=== PATIENT | male | born 1940 | race Caucasian/White ===

== ENCOUNTER 2022-12-08 12:44 | Emergency (ER) | payer MEDICARE, OTHER ==
[~2022-12-08] VITALS: Ht 177.8 cm; Wt 90.7 kg
[~2022-12-08 12:44] MED LIST: ALBU90OI6 INH; ASPI81EC; ASPI81EC PO; CEPH500 PO; DOXY100 PO; FLUSAL2505 IH; FOSI10 PO; FURO20 PO; GLIP10 PO; GLIP5 PO; MULVITA; PIOG30 PO; QUIN10
[2022-12-08 13:07] LABS: BASOPHILS ABSOLUTE AUTO 0.05 K/mm3 (0.00-0.23); BASOPHILS PERCENT AUTO 0 % (0-2); EOSINOPHILS ABSOLUTE AUTO 0.06 K/mm3 (0.00-0.68); EOSINOPHILS PERCENT AUTO 1 % (0-6); Hematocrit 45.1 % (37.0-53.0); Hemoglobin 15.3 g/dL (13.5-17.5); IMMATURE GRAN ABSOLUTE AUTO 0.05 K/mm3 (0.00-0.10); IMMATURE GRAN PERCENT AUTO 0 % (0-1); LYMPHOCYTES ABSOLUTE AUTO 0.83 K/mm3 (0.84-5.20); LYMPHOCYTES PERCENT AUTO 7 % (21-46); MONOCYTES PERCENT AUTO 6 % (4-13); Mean Corpuscular HGB 30.2 pg (26.0-34.0); Mean Corpuscular HGB Conc 33.9 g/dL (31.5-36.5); Mean Corpuscular Volume 89 fL (80-100); Mean Platelet Volume 10.3 fL (9.1-12.4); NEUTROPHILS ABSOLUTE AUTO 10.64 K/mm3 (1.96-9.15); NEUTROPHILS PERCENT AUTO 86 % (41-73); Platelet Count 195 K/mm3 (150-400); RDW Coefficient Variation 12.5 % (11.7-14.2); Red Blood Cell Count 5.06 M/mm3 (4.30-5.90); White Blood Cell Count 12.43 K/mm3 (4.00-11.30)
[2022-12-08 13:24] LABS: Ethanol (Alcohol), Blood, Med <3 mg/dL
[2022-12-08 13:25] LABS: Alanine Aminotransfer (ALT/SGP 15 U/L (12-78); Albumin, Blood 3.7 g/dL (3.4-5.0); Albumin/Globulin Ratio 1.2 (0.8-1.8); Alk Phos 106 U/L (50-136); Anion Gap 6 mmol/L (6-16); Aspartate Aminotrans (AST/SGOT 17 U/L (12-37); Bilirubin, Total 0.4 mg/dL (0.1-1.0); Blood Urea Nitrogen 25 mg/dL (8-24); Bun/Creatinine Ratio 22.1 (12.0-20.0); CO2, Blood 27 mmol/L (21-32); Calcium, Blood 8.8 mg/dL (8.5-10.1); Chloride, Blood 107 mmol/L (98-108); Creatinine, Blood 1.13 mg/dL (0.60-1.20); Globulin, Blood 3.2 g/dL (2.2-4.0); Glomerular Filtration Rate 64 (60-); Glucose, Blood 88 mg/dL (70-99); Potassium, Blood 3.7 mmol/L (3.5-5.5); Sodium, Blood 140 mmol/L (136-145); Total Protein, Blood 6.9 g/dL (6.4-8.2)
[2022-12-08 13:51] LABS: Source, Urine Straight Cath
[2022-12-08 13:55] LABS: Bilirubin, Urine Neg (Neg); Blood, Urine Neg (Neg); Glucose Qualitative, Urine Neg (Neg); Ketones, Urine Neg (Neg); Leukocyte Esterase, Urine Neg (Neg); Nitrite, Urine Neg (Neg); Protein, Urine 1+ (Neg); Urobilinogen, Urine NORM (Normal)
[2022-12-08 13:57] LABS: Appearance, Urine Clear (Clear); Color, Urine Yellow (P-Yellow)
[2022-12-08 14:14] LABS: U Amphetamine Screen Not Detected; U Barbituate Screen Not Detected; U Benzodiazapine Screen Not Detected; U Buprenorphine Screen Not Detected; U Cannabinoids Screen Not Detected; U Cocaine Screen Not Detected; U Methadone Screen Not Detected; U Methamphetamine Screen Not Detected; U Opiates Screen Not Detected; U Oxycodone Screen Not Detected; U Phencyclidine Screen Not Detected; U Propoxyphene Screen Not Detected
[2022-12-08] MEDS ORDERED: B-12500 MC2 PO (15:00)
[2022-12-08] MEDS ORDERED: CARBLEV25 SL (15:00)
[2022-12-08] MEDS ORDERED: INSULIN GL100 UNIT/3 (15:01)
[2022-12-08] MEDS ORDERED: DONEPEZIL HCL10 MG PO (15:01)
[2022-12-08] MEDS ORDERED: CYCL10 PO (15:01)
[2022-12-08] MEDS ORDERED: LIDO700A20 TOP (15:02)
[2022-12-08] MEDS ORDERED: MEMA10 PO (15:02)
[2022-12-08] MEDS ORDERED: LOSA50 PO (15:02)
[2022-12-08] MEDS ORDERED: MIRALAX17 GM PO (15:03)
[2022-12-08] MEDS ORDERED: OXYB5 (15:03)
[2022-12-08] MEDS ORDERED: NOVOLIN N100 UNIT/2 SQ (15:03)
[2022-12-08] MEDS ORDERED: ZOCOR20 MG (15:03)
[2022-12-08] MEDS ORDERED: SYMBICORT 160-4.6 GM (15:04)
[2022-12-08] MEDS ORDERED: SITA50T2 PO (15:04)
[2022-12-08] MEDS ORDERED: SENN187 PO (15:04)
[2022-12-08] MEDS ORDERED: ALBU8HFA2 INH (15:05)
[2022-12-08] MEDS ORDERED: TAMS.4ER PO (15:05)
== END 2022-12-08 18:17 | disposition home or self-care (01) ==
LOC: ER 12:44
PROVIDERS: Emergency Medicine
DX: G20 Parkinson's disease (principal); F02.80 Dementia in other diseases classified elsewhere, unspecified severity, without behavioral disturbance, psychotic disturbance, mood disturbance, and anxiety; R41.0 Disorientation, unspecified; E11.9 Type 2 diabetes mellitus without complications; J44.9 Chronic obstructive pulmonary disease, unspecified; Z79.899 Other long term (current) drug therapy; Z79.82 Long term (current) use of aspirin; Z79.4 Long term (current) use of insulin
CPT/HCPCS: 36415; 51701; 70450; 71045; 71260; 80053; 82947; 84484; 85025; 93005; 93010; 99285-25; G0480; Q9967

== ENCOUNTER 2025-02-23 19:32 | Emergency (ER) | payer MEDICARE, OTHER ==
[~2025-02-23] VITALS: Ht 154.9 cm; Wt 59.9 kg
[~2025-02-23 19:32] MED LIST changes: +ALBU8HFA2 INH; +B-12500 MC2 PO; +CARBLEV25 SL; +CYCL10 PO; +DONEPEZIL HCL10 MG PO; +INSULIN GL100 UNIT/3; +LIDO700A20 TOP; +LOSA50 PO; +MEMA10 PO; +MIRALAX17 GM PO; +NOVOLIN N100 UNIT/2 SQ; +OXYB5; +SENN187 PO; +SITA50T2 PO; +SYMBICORT 160-4.6 GM; +TAMS.4ER PO; +ZOCOR20 MG
[2025-02-23] MEDS ORDERED: Ondansetron HCl 2 MG / ML 2ML Vial IV PRN (20:35)
[2025-02-23 20:51] LABS: BASOPHILS ABSOLUTE AUTO 0.04 K/mm3 (0.00-0.23); BASOPHILS PERCENT AUTO 0 % (0-2); EOSINOPHILS ABSOLUTE AUTO 0.03 K/mm3 (0.00-0.68); EOSINOPHILS PERCENT AUTO 0 % (0-6); Hemoglobin 14.8 g/dL (13.5-17.5); IMMATURE GRAN ABSOLUTE AUTO 0.03 K/mm3 (0.00-0.10); IMMATURE GRAN PERCENT AUTO 0 % (0-1); LYMPHOCYTES ABSOLUTE AUTO 1.07 K/mm3 (0.84-5.20); LYMPHOCYTES PERCENT AUTO 10 % (21-46); MONOCYTES ABSOLUTE AUTO 0.66 K/mm3 (0.16-1.47); MONOCYTES PERCENT AUTO 6 % (4-13); Mean Corpuscular HGB 29.4 pg (26.0-34.0); Mean Corpuscular HGB Conc 33.6 g/dL (31.5-36.5); Mean Corpuscular Volume 87 fL (80-100); Mean Platelet Volume 10.8 fL (9.1-12.4); NEUTROPHILS ABSOLUTE AUTO 8.97 K/mm3 (1.96-9.15); NEUTROPHILS PERCENT AUTO 83 % (41-73); Platelet Count 353 K/mm3 (150-400); RDW Coefficient Variation 12.7 % (11.7-14.2); RDW Standard Deviation 40.5 fL (35.1-46.3); Red Blood Cell Count 5.04 M/mm3 (4.30-5.90)
[2025-02-23 21:36] LABS: Albumin, Blood 3.2 g/dL (3.4-5.0); Albumin/Globulin Ratio 0.7 (0.8-1.8); Bilirubin, Total 1.3 mg/dL (0.1-1.0); Bun/Creatinine Ratio 31.8 (12.0-20.0); Calcium, Blood 8.8 mg/dL (8.5-10.1); Creatinine, Blood 0.85 mg/dL (0.60-1.20); Globulin, Blood 4.4 g/dL (2.2-4.0); Total Protein, Blood 7.6 g/dL (6.4-8.2)
[2025-02-23 21:37] LABS: Potassium, Blood 5.3 mmol/L (3.5-5.5)
[2025-02-23] MEDS ORDERED: Ondansetron HCl 2 MG / ML 2ML Vial IV ONE (22:15)
[2025-02-23] MEDS ORDERED: NS 1,000 ML IV SCH (22:15)
[2025-02-23 22:32] LABS: Magnesium, Blood 1.9 mg/dL (1.6-2.4)
[2025-02-23] MEDS ORDERED: MIRALAX17 GM PO (23:36)
[2025-02-23] MEDS ORDERED: ONDA4 PO (23:36)
[2025-02-23] MEDS ORDERED: DICY20 PO (23:36)
[2025-02-24 00:05] VITALS: BP 150/81
== END 2025-02-24 00:05 | disposition home or self-care (01) ==
LOC: ER 19:32
PROVIDERS: Student in an Organized Health Care Education/Training Program
DX: K52.9 Noninfective gastroenteritis and colitis, unspecified (principal); K59.00 Constipation, unspecified; J44.9 Chronic obstructive pulmonary disease, unspecified; E11.9 Type 2 diabetes mellitus without complications; G20.A1 Parkinson's disease without dyskinesia, without mention of fluctuations; I25.10 Atherosclerotic heart disease of native coronary artery without angina pectoris; J98.11 Atelectasis; K76.89 Other specified diseases of liver; K40.90 Unilateral inguinal hernia, without obstruction or gangrene, not specified as recurrent; K57.90 Diverticulosis of intestine, part unspecified, without perforation or abscess without bleeding; Z87.891 Personal history of nicotine dependence; Z79.82 Long term (current) use of aspirin; Z79.4 Long term (current) use of insulin; Z79.899 Other long term (current) drug therapy; Z79.52 Long term (current) use of systemic steroids
CPT/HCPCS: 74177; 80053; 82947; 83690; 83735; 85025; 93005; 93010; 96361; 96374-59; 99284-25; J2405; J7030; Q9967